=== PATIENT | female | born 1960 | race Caucasian/White ===

== ENCOUNTER 2021-07-16 08:50 | Day surgery (SDC) | payer OTHER, SELFPAY ==
[~2021-07-16] VITALS: Ht 154.9 cm; Wt 68.0 kg
[~2021-07-16 08:50] MED LIST: AMLO10TA89 PO; ASPI-1749 PO; ATEN50TA2 PO; ATOR20TA PO; ENAL-197 PO; GLIP5TER PO; HYDR25TA32 PO; METF-1253 PO; OMEP20EC11 PO; PIOG45TA10 PO
[2021-07-16] MEDS ORDERED: LIDOCAINE 2% 100 MG/5 ML UJET TP ONE (10:53)
[2021-07-16] MEDS ORDERED: fentaNYL citrate 0.05 MG/ML VIAL ONE (10:53)
[2021-07-16] MEDS ORDERED: fentaNYL citrate 0.05 MG/ML VIAL IVP ONE (16:20)
== END 2021-07-16 13:05 | disposition home or self-care (01) ==
LOC: MOR 08:50 → MMU 09:28 → MOR 13:05
PROVIDERS: ATTEND Internal Medicine Gastroenterology
DX: Z12.11 Encounter for screening for malignant neoplasm of colon (principal); K57.30 Diverticulosis of large intestine without perforation or abscess without bleeding; I10 Essential (primary) hypertension; E11.9 Type 2 diabetes mellitus without complications; Z88.0 Allergy status to penicillin; Z79.82 Long term (current) use of aspirin; Z79.84 Long term (current) use of oral hypoglycemic drugs; Z79.899 Other long term (current) drug therapy; Z20.822 Contact with and (suspected) exposure to COVID-19
CPT/HCPCS: 45378; 87426; J3010

== ENCOUNTER 2021-08-07 17:58 | Emergency (ER) | payer OTHER ==
[~2021-08-07] VITALS: Ht 152.4 cm; Wt 70.8 kg
[2021-08-07 18:05] VITALS: BP 157/80
[2021-08-07 20:02] VITALS: BP 157/80
== END 2021-08-07 20:02 | disposition home or self-care (01) ==
LOC: MED 17:58
DX: S90.122A Contusion of left lesser toe(s) without damage to nail, initial encounter (principal); E11.9 Type 2 diabetes mellitus without complications; I10 Essential (primary) hypertension; Z79.84 Long term (current) use of oral hypoglycemic drugs; Z79.82 Long term (current) use of aspirin; Z88.0 Allergy status to penicillin; Z79.899 Other long term (current) drug therapy; W22.8XXA Striking against or struck by other objects, initial encounter; Y93.01 Activity, walking, marching and hiking; Y92.480 Sidewalk as the place of occurrence of the external cause; Y99.8 Other external cause status
CPT/HCPCS: 73660; 99283

== ENCOUNTER 2022-01-19 23:53 | Emergency (ER) | payer OTHER ==
[~2022-01-19] VITALS: Ht 152.4 cm; Wt 70.3 kg
[2022-01-19 23:59] VITALS: BP 145/79
--- NOTE | 2022-01-20 00:04 | NUR ---
TO LOBBY FOLLOWING TRIAGE
--- NOTE | 2022-01-20 00:30 | NUR ---
Patient ambulated to bed 4.
--- NOTE | 2022-01-20 00:35 | NUR ---
Dr. Martinez examining patient.
[2022-01-20] MEDS ORDERED: NACL 0.9% 500 ML IV ONE (00:40)
[2022-01-20] MEDS ORDERED: diphenhydrAMINE 50 MG/ML VIAL IVP ONE (00:40)
[2022-01-20] MEDS ORDERED: methylPREDNISolone SS 125 MG/2 ML VIAL IVP ONE (00:40)
[2022-01-20] MEDS ORDERED: PRED20TA5 PO (01:16)
[2022-01-20] MEDS ORDERED: EPIN1KIT31 IM (01:16)
[2022-01-20] MEDS ORDERED: DIPH25TA53 PO (01:16)
[2022-01-20 01:21] VITALS: BP 127/76
== END 2022-01-20 01:26 | disposition home or self-care (01) ==
LOC: MED 23:53
DX: L50.0 Allergic urticaria (principal); E11.9 Type 2 diabetes mellitus without complications; I10 Essential (primary) hypertension; I25.2 Old myocardial infarction; Z79.84 Long term (current) use of oral hypoglycemic drugs; Z79.899 Other long term (current) drug therapy; Z79.82 Long term (current) use of aspirin; Z88.0 Allergy status to penicillin
CPT/HCPCS: 96374; 96375; 99284; J1200; J2930; J7030